=== PATIENT | female | born 2000 | race Caucasian/White ===

== ENCOUNTER 2022-06-01 11:14 | Emergency (ER) | payer MEDICAID ==
[~2022-06-01] VITALS: Ht 152.4 cm; Wt 50.0 kg
[2022-06-01 11:18] VITALS: BP 131/82
[2022-06-01] MEDS ORDERED: MAGNESIUM/ALUMINUM HYDROXIDE/SIMETHICONE 30ML UDC PO STA (12:27)
[2022-06-01] MEDS ORDERED: KETOROLAC 60MG/2ML VIAL IM STA (12:27)
[2022-06-01] MEDS ORDERED: FAMOTIDINE 20MG TABLET PO ONE (12:30)
[2022-06-01 12:47] LABS: BASOPHILS % 0.5 % (0.0-2.0); EOSINOPHILS % 0.2 % (0.0-5.0); LYMPHOCYTES % 10.2 % (20.0-50.0); MEAN CORPUSCULAR HEMOGLOBIN 27.4 pg (28.0-32.0); MEAN PLATELET VOLUME 8.5 fl (7.4-10.4); MONOCYTES % 3.8 % (2.0-8.0); NEUTROPHILS % 85.3 % (40.0-76.0); PLATELET 285 x1000/uL (130-400); RED BLOOD CELL COUNT 4.76 mill/uL (4.2-5.4); RED CELL DISTRIBUTION WIDTH 14.1 % (11.6-14.6)
[2022-06-01 12:56] LABS: CHLORIDE 107 mEq/L (98-107)
[2022-06-01 12:58] LABS: HCG SCREEN NEGATIVE
[2022-06-01] MEDS ORDERED: FAMO-135 MT ×3 (14:49→14:51)
[2022-06-01] MEDS ORDERED: MAG355OR21 MT (14:49)
== END 2022-06-01 15:20 | disposition home or self-care (01) ==
LOC: ER 11:44
DX: R10.13 Epigastric pain (principal)
CPT/HCPCS: 36415; 71045; 76705; 80053; 83690; 84703; 85025; 93005; 96372; 99285; J1885